=== PATIENT | male | born 1950 | race Two or more races ===

== ENCOUNTER → 2018-03-11 | Day surgery (SDC) | payer MEDICARE, BC ==
[2018-03-07 12:45] LABS: BASOPHILS % 0.6 % (0.0-1.0); EOSINOPHILS # (AUTO) 0.2 (0.0-0.4); EOSINOPHILS % 3.5 % (0.0-6.0); HEMATOCRIT 35.9 % (38.2-49.6); HEMOGLOBIN 11.9 g/dL (14.0-18.0); LYMPHOCYTES % 14.3 % (18.0-39.1); MEAN CORPUSCULAR HEMOGLOBIN 30.7 pg (28-32); MEAN CORPUSCULAR HGB CONC 33.1 g/dL (31-35); MEAN CORPUSCULAR VOLUME 92.8 fL (81-99); MONOCYTES # (AUTO) 0.9 (0.2-0.8); MONOCYTES % 12.7 % (4.4-11.3); NEUTROPHILS # (AUTO) 4.8 (2.1-6.9); NEUTROPHILS % 68.6 % (38.7-80.0); PLATELET COUNT 103 x10e3/uL (140-360); RED BLOOD COUNT 3.87 x10e6/uL (4.3-5.7); RED CELL DISTRIBUTION WIDTH 16.3 % (11.7-14.4)
[2018-03-07 13:00] LABS: ANION GAP 13.5 mmol/L (8-16); CALCIUM 10.4 mg/dL (8.4-10.2); CREATININE, SERUM 3.26 mg/dL (0.72-1.25); POTASSIUM 3.5 mmol/L (3.5-5.1)
--- NOTE | 2018-03-07 13:03 | Diagnostic Imaging Report ---
PROCEDURE: Frontal and lateral views of the chest. COMPARISON: 05/29/17 INDICATIONS: PRE-OP FINDINGS: Lines/tubes: None. Lungs: The lungs are well inflated. No focal consolidation. Pulmonary vas are congestion. Pleura: There is pneumothorax. Obscuration of the left costophrenic angle. Heart and mediastinum: The cardiac silhouette is enlarged. Median sternotomy wires. Calcification of aortic arch. Bones: No acute bony abnormality. IMPRESSION: Again seen enlarged cardiac silhouette and pulmonary vascular congestion. Unchanged obscuration of the left costophrenic angle, representing small pleural effusion versus scarring. Possible trace right pleural effusion. Dictated by: Juaquin Burgess M.D. on 03/07/2018 at 13:04 Electronically approved by: Juaquin Burgess M.D. on 03/07/2018 at 13:04
[~2018-03-11] MED LIST: AMLODIPINE BESYL5 MG PO; BACITRACIN15 GM TOP; CLINDAMYCIN HC150 MG PO; CLONIDINE HCL0.2 MG PEG; CLOPIDOGREL75 MG PO; ECOTRIN325 MG PO; EPOGEN10000 UNIT SQ; GLIPIZIDE5 MG PO; HYDRALAZINE HCL10 MG PO; HYDRALAZINE HCL25 MG PO; LABETALOL HCL200 MG PO; LIDOCAINE HCL 2% LOCAL INJ 5 ML SDV VIAL INJ ONE; LIPITOR20 MG PO; LISINOPRIL10 MG PO; METOPROLOL TART50 MG PO; NEXIUM40 MG PO; PLAVIX75 MG PO; PROPOFOL IV EMULSION 10 MG/ML 20 ML VIAL ONE; RENVELA0.8 GM PO; SENSIPAR30 MG PO; SODIUM CHLORIDE 0.9% 500ML 500 ML ONE; SYNTHROID88 MCG PO; TUMS200 MG PO; VITAMIN C1000 MG PO; VITAMIN E1000 UNI2 PO; VYTORIN 10-201 EACH PO
--- OUTSIDE RECORDS SUMMARY | 2018-03-11 06:01 | XMS REPORT | Clinical Summary ---
Author Author [facility] Address Unknown Phone Unavailable Care Team Providers Care Watch Engineer Name Role Phone PCP Unavailable Allergies Active Allergy Reactions Severity Noted Date Comments Sulfamethoxazole-Trimetho 02/07/2016 prim Current Medications Prescription Sig. Disp. Refills Start End Date Status Date aspirin 81 MG EC tablet Take 81 mg by mouth Active daily. clopidogrel (PLAVIX) 75 Take 75 mg by mouth Active mg tablet daily. furosemide (LASIX) 40 MG Take 40 mg by mouth Active tablet daily. metoprolol (LOPRESSOR) 25 Take 50 mg by mouth daily Active MG tablet . esomeprazole (NEXIUM) 40 Take 20 mg by mouth daily Active MG capsule . sodium bicarbonate 325 MG Take 650 mg by mouth 3 Active tablet (three) times daily. levothyroxine (SYNTHROID, Take 88 mcg by mouth Active LEVOTHROID) 88 MCG tablet daily. ascorbic acid (ASCORBIC Take 500 mg by mouth Active ACID WITH GNEO HIPS) 500 daily. MG tablet vitamin E 100 UNIT Take 100 Units by mouth Active capsule daily. ezetimibe-simvastatin Take 1 tablet by mouth Active (VYTORIN) 10-20 mg per nightly. tablet lisinopril Take 40 mg by mouth Active (PRINIVIL,ZESTRIL) 40 MG daily. tablet hydrALAZINE (APRESOLINE) Take 50 mg by mouth Active 50 MG tablet daily. sodium polystyrene Take by mouth as needed. Active (KAYEXALATE) powder sevelamer (RENVELA) 800 Take 800 mg by mouth 3 Active mg tablet (three) times daily with meals 3 tabs every meal & 2 tabs w/ snacks . cinacalcet (SENSIPAR) 30 Take 30 mg by mouth every Active MG tablet other day. atorvastatin (LIPITOR) 20 Take 20 mg by mouth Active MG tablet daily. Active Problems Problem Noted Date Patient awaiting renal transplant 01/22/2014 Overview: cmv +, ebv +, hbsab + PRA 0/0 HTN (hypertension) 09/15/2013 DM (diabetes mellitus) (HCC) 09/15/2013 CAD (coronary artery disease) 09/15/2013 Pre-transplant evaluation for ESRD (end stage renal disease) 08/07/2013 Encounters Date Type Specialty Care Team Description 02/18/2018 Orders Only Transplant Vasiliy Kevin MD 01/21/2018 Documentation Transplant Samantha Krishnamurthy 12/02/2017 Orders Only Transplant Joslyn Vick RN Pre-transplant evaluation for ESRD (end stage renal disease) (Primary Dx);Patient awaiting renal transplant 11/28/2017 Telephone Transplant Joslyn Vick RN Waitlist Maintenance 11/14/2017 Documentation Transplant Joslyn Vick RN 11/08/2017 Orders Only Transplant Vasiliy Kevin MD 10/24/2017 Orders Only Transplant Vasiliy Kevin MD 09/13/2017 Lab Requisition Lab Cruzito Rivas MD 06/07/2017 Lab Requisition Lab Cruzito Rivas MD after 03/10/2017 Family History Medical History Relation Name Comments Diabetes Brother Heart disease Father Heart disease Mother Diabetes Sister Relation Name Status Comments Brother Father Mother Sister Social History Tobacco Use Types Packs/Day Years Used Date Never Smoker Smokeless Tobacco: Never Used Alcohol Use Drinks/Week oz/Week Comments No Sex Assigned at Date Recorded Not on file Last Filed Vital Signs Not on file Plan of Treatment Health Maintenance Due Date Last Done Comments INFLUENZA VACCINE 08/25/2018 Results * 2D Echo W/Doppler(CW/PW/Color) (02/04/2018) * Flow PRA Class II (12/16/2017 3:26 PM) Component Value Ref Range Flow Class II Percent 0 Positive Flow Class Report Comments Specimen Performing Laboratory Blood [facility] HLA TEST[facility] [place], [place]: [id number] [place] [address] * Flow PRA Class I (12/16/2017 3:26 PM) Component Value Ref Range Flow Class I Percent 0 Positive Flow Class Report Comments Specimen Performing Laboratory Blood [facility] [place] [facility] [place], [place]: [id number] [place] [address] * Flow PRA Class I and II (09/09/2017 12:00 PM) Only the most recent of 2 results within the time period is included. Component Value Ref Range Date of Serum [id number] Serum# [id number] Flow PRA Class I and II See Scanned Report Specimen Performing Laboratory Blood [facility]MMUNE EVALUATION LAB [facility] [place] [address] [place] [address] * Stress test, pharmacological with nuc med myocardial perfusion planar (2-day stress/rest) (07/18/2017) * [place] LEFT HEART CATH,PERCUTANEOUS (07/11/2017) after 03/10/2017
--- OUTSIDE RECORDS SUMMARY | 2018-03-11 06:01 | XMS REPORT ---
Author Author [facility] Address Unknown Phone Unavailable Care Team Providers Care Excelsior Picker Name Role Phone ROSI IZAGUIRRE Unavailable Unavailable Problems This patient has no known problems. Allergies, Adverse Reactions, Alerts This patient has no known allergies or adverse reactions. Medications This patient has no known medications. Results Test Description Test Time Test Comments Text Results Atomic Results Result Comments FLOW PRA CLASS I AND II 2017-09-17 11:12:00 DATE OF SERUM (BEAKER) (test lwjk=9135) [id number] SERUM # (BEAKER) (test cjeb=8373) [id number] FLOW PRA CLASS I AND II (test otzq=1522) See Scanned Report FLOW PRA CLASS I AND [id number] 07:47:00* Test Item Value Reference Range Comments DATE OF SERUM (BEAKER) (test gdqf=0062) [id number] SERUM # (BEAKER) (test wufr=6819) [id number] FLOW PRA CLASS I AND II (test xqnr=0655) See Scanned Report FLOW PRA CLASS I AND [id number] 11:16:00* Test Item Value Reference Range Comments DATE OF SERUM (BEAKER) (test mcxt=3978) [id number] SERUM # (BEAKER) (test hmsd=4378) [id number] FLOW PRA CLASS I AND II (test bytu=0475) See Scanned Report CHEST 2 VIEWS [facility] [address] [place], [place] [address] Patient Name: RITIKA CARRANZA MR #: [id number] : 1950 Age/Sex: 67/M Req #: [id number] Adm Physician: Ordered by: ROSI IZAGUIRRE MD Report #: [id number] Location: OR Room/Bed: Procedure: [id number] DX/CHEST 2 VIEWS Exam Date: 03/07/18 Exam Time: 1230 REPORT STATUS: Signed PROCEDURE: Frontal and lateral views of the chest. COMPARISON: 05/29/17 INDICATIONS: PRE-OP FINDINGS: Lines/tubes: None. Lungs: The lungs are well inflated. No focal consolidation. Pulmonary vas are congestion. Pleura: There is pneumothorax. Obscuration of the left costophrenic angle. Heart and mediastinum: The cardiac silhouette is enlarged. Median sternotomy wires. Calcification of aortic arch. Bones: No acute bony abnormality. IMPRESSION: Again seen enlarged cardiac silhouette and pulmonary vascular congestion. Unchanged obscuration of the left costophrenic angle, representing small pleural effusion versus scarring. Possible trace right pleural effusion. Dictated by: Juaquin Hansen M.D. on 03/07/2018 at 13:04 Electronically approved by: Juaquin Hansen M.D. on 03/07/2018 at 13:04 Dictated By: JUAQUIN HANSEN MD [id number] Transcribed By: MARISA on 03/07/18 1304 COPY TO: ROSI IZAGUIRRE MD
== END | disposition home or self-care (01) ==
LOC: OR 05:59
PROVIDERS: ATTEND Surgery
DX: K59.00 Constipation, unspecified (principal); K57.30 Diverticulosis of large intestine without perforation or abscess without bleeding; E11.22 Type 2 diabetes mellitus with diabetic chronic kidney disease; I12.0 Hypertensive chronic kidney disease with stage 5 chronic kidney disease or end stage renal disease; N18.6 End stage renal disease; I25.810 Atherosclerosis of coronary artery bypass graft(s) without angina pectoris; Z88.1 Allergy status to other antibiotic agents; Z88.2 Allergy status to sulfonamides; Z01.810 Encounter for preprocedural cardiovascular examination; Z01.812 Encounter for preprocedural laboratory examination; Z01.818 Encounter for other preprocedural examination; Z99.2 Dependence on renal dialysis; Z79.02 Long term (current) use of antithrombotics/antiplatelets; Z79.82 Long term (current) use of aspirin; Z95.1 Presence of aortocoronary bypass graft
CPT/HCPCS: 36415 ×2; 45378; 71046; 80048; 84132; 85025; 93005; J2001; J7040

== ENCOUNTER → 2020-11-02 | Outpatient (CLI) | payer MEDICARE, BC ==
[~2020-11-02] MED LIST changes: -LIDOCAINE HCL 2% LOCAL INJ 5 ML SDV VIAL INJ ONE; -PROPOFOL IV EMULSION 10 MG/ML 20 ML VIAL ONE; -SODIUM CHLORIDE 0.9% 500ML 500 ML ONE
== END ==
LOC: MRI 14:21
PROVIDERS: ATTEND Family Medicine
DX: G45.9 Transient cerebral ischemic attack, unspecified (principal)
CPT/HCPCS: 70551

== ENCOUNTER 2021-07-30 13:59 | Emergency (ER) | payer MEDICARE, BC ==
[~2021-07-30] VITALS: Ht 170.2 cm; Wt 66.7 kg
== END 2021-07-30 18:15 | disposition home or self-care (01) ==
LOC: ER 14:10
DX: E11.649 Type 2 diabetes mellitus with hypoglycemia without coma (principal); I12.0 Hypertensive chronic kidney disease with stage 5 chronic kidney disease or end stage renal disease; E11.22 Type 2 diabetes mellitus with diabetic chronic kidney disease; N18.6 End stage renal disease; Z99.2 Dependence on renal dialysis; Z79.84 Long term (current) use of oral hypoglycemic drugs; D64.9 Anemia, unspecified; K21.9 Gastro-esophageal reflux disease without esophagitis; Z95.1 Presence of aortocoronary bypass graft
CPT/HCPCS: 99283

== ENCOUNTER → 2023-11-06 | Outpatient (REF) | payer MEDICARE, BC | LOC: CARD 09:22 | PROVIDERS: ATTEND Family Medicine | DX: I70.90 Unspecified atherosclerosis (principal); I65.23 Occlusion and stenosis of bilateral carotid arteries | CPT/HCPCS: 93880 ==